=== PATIENT | female | born 1950 | race Caucasian/White ===

== ENCOUNTER → 2016-12-27 | Outpatient (CLI) | payer OTHER ==
[~2016-12-27] MED LIST: AMBIEN 5 MG TABL5 M1 PO; ASPIR-TRIN325 MG PO; BISACODYL SUPP10 MG RECTAL; LEVAQUIN 500 M500 M2 PO; LEVOTHYROXIN0.025 MG PO; MUCINEX TA600 MG/TA1 PO; NEBULIZER MISCELL; PAXIL10 MG; PAXIL10 MG PO; PROBIOTIC1 EAC1; TENORMIN25 MG PO; TRAZODONE 150150 M1 PO; WELLBUTRIN XL300 MG PO
== END ==
LOC: MRI 11:53
DX: M17.11 Unilateral primary osteoarthritis, right knee (principal); M25.461 Effusion, right knee

== ENCOUNTER → 2018-09-20 | Outpatient (CLI) | payer OTHER ==
--- NOTE | 2018-09-26 17:06 | PATH ---
[facility] [place] [address] PATHOLOGY RPT PROCEDURE Name: JENNIFER WARNER Room #: REG LUCILLE M.R.#: [id number] ������������������ Admission: 09/20/18 ������������������ Date of : 48 Discharge: Report #: [id number] Path Case #: [id number] [facility] Accession Number: [id number] . 01 Material submitted: . breast - RIGHT BREAST, 10:00. Modifiers: right, 10:00 . 01 Clinical history: . Rt breast mass Rt breast CA - 1998 . 02 Diagnosis: Breast, right breast 10:00, 6 cm from nipple, needle core biopsy: - INVASIVE POORLY-DIFFERENTIATED DUCTAL ADENOCARCINOMA, YARA GRADE III AND MEASURING 1.7 CM IN CONTIGUOUS LENGTH IN A SINGLE CORE WITH FOCAL MICROPAPILLARY FEATURES. - DUCTAL CARCINOMA IN SITU, WITH COMEDO-TYPE NECROSIS AND HIGH NUCLEAR GRADE PRESENT IN THE BACKGROUND. (IUV:leigh ann; 09/22/2018) MBR/09/22/2018 . 02 Comment: Specimen type: Needle core biopsy Tumor site: Right 10:00, 6 cm Tumor quantitation: Approximately 1.7 cm in a single core Histologic type: Invasive ductal carcinoma Histologic grade: Yara grade III Tubules, nuclei and mitoses: 3, 2 and 2 respectively LVSI: Not identified Microcalcifications: Present in association with invasive carcinoma Markers: ER, UT, Ki67, HER2/wenceslao Block: A1 . . Co-review: Dr. Castillo. . Findings of this case are telephoned to Miss Smith in our breast center at 11:43 a.m. on 09/22/18. . (IUV:communications associate; 09/22/2018) . 02 Addendum: . Special studies report received from [facility], [address] [place] [address], [address], [place], [address], on case [id number], labeled with their number [id number], dated 09/26/2018. . [address] [address] PATHOLOGY RPT PROCEDURE Name: JENNIFER WARNER Room #: REG LUCILLE Cortez#: [id number] ������������������ Admission: 09/20/18 ������������������ Date of : 48 Discharge: Report #: [id number] Path Case #: [id number] Breast/Prognostic Marker Analysis . Specimen Site: Rt Breast,10:00, 6 cm FN, Breast Carcinoma (Biopsy) Specimen ID #: [id number] . ER (Estrogen Receptor) Present/Positive Percent: 90.39% Analysis: Image Comments: Staining intensity: Moderate to strong . UT (Progesterone Receptor) Present/Positive Percent: 7.48% Analysis: Image Comments: Staining intensity: Weak to moderate . HER2 Not Over-Expressed Score: 0 Analysis: Image . Ki-67 High Proliferation Percent: 43.70% Analysis: Image . Time to Fixation (Cold Ischemic Time): Less than 1 minute Duration of Fixation: 28 hours 20 minutes Type of Fixative: 10% Neutral Buffered Formalin . at [facility]. Cherry Lee M.D. Pathologist . Methodology The HER2 Receptor protein expression is analyzed using the [place] HER2 rabbit monoclonal antibody (clone [id number]). This assay is used for diagnostic determination of the HER2 protein over-expression in paraffin embedded, formalin fixed breast cancer tissue on the [employer] Benchmark. The specimen is processed using a polymer detection system. The membrane staining of the tumor is determined either by manual score or image analysis. This antibody is intended for in vitro diagnostic use. The score is reported as per package insert; 0, 1+, 2+, and 3+. This test is used for clinical purposes. . A rabbit monoclonal antibody (clone SP1) that recognized the Estrogen [address] [address] PATHOLOGY RPT PROCEDURE Name: JENNIFER WARNER Room #: REG LUCILLE Cortez#: [id number] ������������������ Admission: 09/20/18 ������������������ Date of : 48 Discharge: Report #: [id number] Path Case #: [id number] Receptor is used to perform immunohistochemistry on routinely fixed (formalin) paraffin embedded tissue on the [place] Benchmark. The specimen is processed using a polymer detection system. The percentage of stained tumor nuclei is determined either manually or by image analysis. This test is intended for in vitro diagnostic use. This test is used for clinical purposes. . A rabbit monoclonal antibody (clone 1E2) that recognized the Progesterone Receptor is used to perform immunohistochemistry on routinely fixed (formalin) paraffin embedded tissue on the [place] Benchmark. The specimen is processed using a polymer detection system. The percentage of stained tumor nuclei is determined either manually or by image analysis. This test is intended for in vitro diagnostic use. This test is used for clinical purposes. . A rabbit monoclonal antibody (clone 30-9) that recognized Ki67 is used to perform immunohistochemistry on routinely fixed (formalin) paraffin embedded tissue on the [place] Benchmark. The specimen is processed using a polymer detection system. The percentage of stained tumor nuclei is determined either manually or by image analysis. This test is intended for in vitro diagnostic use. This test is used for clinical purposes. . Intended Use: This antibody is intended for in vitro diagnostic (IVD) use. HER2 (4B5) is a rabbit monoclonal antibody intended for the semi-quantitative detection of HER2 antigen in sections of formalin-fixed, paraffin embedded normal and neoplastic tissue. . This antibody is intended for in vitro diagnostic (IVD) use. Estrogen Receptor (ER) (SP1) is a rabbit monoclonal antibody (IgG) that is intended for the qualitative detection of estrogen receptor (ER) antigen in sections of formalin-fixed, paraffin-embedded tissue. ER is a rabbit monoclonal antibody that recognizes human estrogen receptor alpha. . This antibody is intended for in vitro diagnostic (IVD) use. Progesterone Receptor (UT) (1E2) is a rabbit monoclonal antibody (IgG) that is intended for the qualitative detection of progesterone receptor (UT) antigen in sections of formalin fixed, paraffin embedded tissue. UT is a rabbit monoclonal antibody that recognizes the A and B forms of the human progesterone receptor. . This antibody is intended for in vitro diagnostic (IVD) use. Ki-67 (30-9) is a rabbit monoclonal antibody (IgG) directed against C-terminal portion of Ki-67 antigen. Staining for Ki-67 can be used to aid in assessing the proliferative activity of normal and neoplastic tissue. Ki-67 is a nuclear protein expressed in proliferating cells. During the cell cycle, the Ki-67 antigen is present in the G1, S, G2 and M phase but is absent in the G0 (quiescent phase). [address] [address] PATHOLOGY RPT PROCEDURE Name: JENNIFER WARNER BRAVO Room #: REG CLI ..#: [id number] ������������������ Admission: 09/20/18 ������������������ Date of : 48 Discharge: Report #: [id number] Path Case #: [id number] . . Disclaimer: This Test was performed by [facility] [employer] at [facility], [address]. . [facility] is a business unit of [employer] a wholly-owned subsidiary of [employer] . This assay has not been validated on decalcified tissues. Results should be interpreted with caution if this specimen was decalcified given the likelihood of false negativity on decalcified specimens. . Any image(s) that accompany this report is/are a district sales representative image(s) only and should not be used to render a diagnosis. . This interpretation is contingent on the specimen and the clinical information received. . For any special tests/stains performed, known positive cells or tissues are tested with each marker and examined to ensure positivity. Positive and negative internal controls, if present, react appropriately. . This analysis is an adjunct to the evaluation of the referring physician and does not represent a final diagnosis. . The immunohistochemistry tests performed at [facility] [employer] were validated on tissue fixed in 10% neutral buffered formalin. The performance characteristics of the tests performed on tissue processed in other fixatives is not known. . HER2 testing at [facility] [employer] is performed in compliance with the 2018 updated ASCO/CAP Clinical Practice Guideline Focused Update. If the result is EQUIVOCAL (2+), it must be confirmed by an alternative assay such as FISH or Dual CHERELLE. REF: Jairo CARREON, EVY Lockhart et al: Human Epidermal Growth Factor Receptor 2 Testing in Breast Cancer: ASCO/CAP Clinical Practice Guideline Focused Update. J Clin Oncol 36:7506-4633, 2018. . HER2 and ER/UT ASCO/CAP guidelines require fixation in neutral buffered formalin for a minimum of 6 and a maximum of 72 hours. Fixation times less than 6 hours may not adequately preserve cell proteins. Fixation times longer than 72 hours may cause excess cross-linking of proteins reducing the antigen available for staining. Either scenario can cause reduced staining; hence false negative results are possible and should be considered for these situations if the HER2 IHC score is less than 3+ or ER or UT is negative (no staining or <1% positive). It is recommended that [address] [address] PATHOLOGY RPT PROCEDURE Name: LAURIGUZMANJENNIFER ANNE Room #: REG LUCILLE Cortez#: [id number] ������������������ Admission: 09/20/18 ������������������ Date of : 48 Discharge: Report #: [id number] Path Case #: [id number] specimens fixed longer than 72 hours with HER2 IHC scores less than 3+ be confirmed by HER2 FISH or Dual CHERELLE. The time from biopsy/excision to fixation in formalin (cold ischemic time) must be less than 1 hour. Time to fixation (cold ischemic time) greater than 1 hour should be interpreted with caution. HER2 testing, mainly HER2 by FISH, is particularly vulnerable since excessive cold ischemic time results in preferential loss of HER2 probe signals that may lead to false negative results. . SCORE STAINING PATTERN IN TUMOR CELLS INTERPRETATION RESULTS 0 No staining observed or incomplete, faint membrane staining in less than or equal to 10% of tumor cells. Negative 1+ Incomplete, faint membrane staining in greater than 10% of tumor cells. Negative 2+ Weak to moderate complete membrane staining observed in greater than 10% of tumor cells. Equivocal* *Must be confirmed by alternative assay (IHC/FISH/Dual CHERELLE) 3+ Intense, complete membrane staining in greater than 10% of tumor cells. Positive . A complete copy of the report is on file. . Professional and Technical services performed by [facility] at [address] [facility] [address], [place] [address]. . ([facility] 09/26/2018) . [facility]/09/26/2018 Addendum Electronically Signed by Yazmin Luna MD, Pathologist . 02 Electronically signed: . Yazmin Luna MD, Pathologist NPI- [id number] . 01 Gross description: . Received in formalin labeled "Jennifer Warner, Rt breast 10:00 6cm," are multiple needle cores of yellow-douglas fibrofatty tissue measuring 3.3 x 1.8 x 0.5 cm in aggregate dimensions. The specimen is submitted entirely in cassettes A1 through A3. The cold ischemic time is less than one minute. The total formalin fixation time is 28 hours and 20 minutes. (DAC; 09/21/2018) [facility]/[address] [address] PATHOLOGY RPT PROCEDURE Name: JENNIFER WARNER Room #: REG LUCILLE Ghotra.#: [id number] ������������������ Admission: 09/20/18 ������������������ Date of : 48 Discharge: Report #: [id number] Path Case #: [id number] . 02 Pathologist provided ICD-10: C50.911, D05.11 . 02 CPT . 318209 Specimen Comment: A courtesy copy of this report has been sent to Specimen Comment: [phone], . Specimen Comment: Report sent to / DR HASTINGS Performed at: [address] [facility] [address], [place], [place] [id number] MD Juan Johns MD Phone: [phone] Performed at: [address] [facility] [address] [id number] MD Yazmin Luna MD Phone: [phone]
== END ==
LOC: ULTRA 12:48 → RAD 12:48
DX: C50.911 Malignant neoplasm of unspecified site of right female breast (principal); Z88.0 Allergy status to penicillin; Z98.890 Other specified postprocedural states; Z79.899 Other long term (current) drug therapy; Z85.850 Personal history of malignant neoplasm of thyroid